=== PATIENT | female | born 1950 | race Caucasian/White ===

== ENCOUNTER 2019-06-19 07:00 | Outpatient (RCR) | payer MEDICARE, OTHER ==
[~2019-06-19 07:00] MED LIST: AMIT50TA PO; ATOR1TAB21 PO; CIPR500S PO; CIPRODEX OTIC; DIAZ2TAB PO; IBUP80TA PO; LIDO2SO SS; LISI10TA4 PO; LYRI75CA PO; MECL12.575 PO; PRED20TA PO; PREG100CA PO; SYNT100T PO
== END 2019-06-21 ==
LOC: M PT 07:00
PROVIDERS: ATTEND Family Medicine
DX: Z51.89 Encounter for other specified aftercare (principal); B02.22 Postherpetic trigeminal neuralgia; R26.89 Other abnormalities of gait and mobility

== ENCOUNTER → 2019-07-21 | Outpatient (RCR) | payer MEDICARE, OTHER | LOC: M PT 06-25 16:32 | PROVIDERS: ATTEND Family Medicine | DX: Z51.89 Encounter for other specified aftercare (principal); B02.29 Other postherpetic nervous system involvement; R26.89 Other abnormalities of gait and mobility ==

== ENCOUNTER 2019-08-18 09:06 | Outpatient (RCR) | payer MEDICARE, OTHER | END 2019-08-21 | LOC: M PT 09:06 | PROVIDERS: ATTEND Family Medicine | DX: R26.89 Other abnormalities of gait and mobility (principal) ==

== ENCOUNTER 2020-12-02 16:39 | Emergency (ER) | payer MEDICARE, OTHER ==
[~2020-12-02] VITALS: Ht 165.1 cm; Wt 140.0 kg
[~2020-12-02 16:39] MED LIST changes: +CIPR7.5D5 OTIC; -CIPRODEX OTIC; +LISI10TA22 PO; -LISI10TA4 PO; -MECL12.575 PO; +MECL12.590 PO
--- OUTSIDE RECORDS SUMMARY | 2020-12-02 16:44 | CCD ---
Author Author [facility] Organization [facility] Address Unknown Phone Unavailable Care Team Providers Care Family Program Specialist Name Role Phone REGINO, Rojelio SANDERS MD Unavailable Unavailable EMERTON, Rojelio SANDERS MD Unavailable Unavailable EMERTON, Rojelio SANDERS MD Unavailable Unavailable EMERTON, Rojelio SANDERS MD Unavailable Unavailable EMERTON, Rojelio SANDERS MD Unavailable Unavailable EMERTON, Rojelio SANDERS MD Unavailable Unavailable EMERTON, Rojelio SANDERS MD Unavailable Unavailable EMERTON, Rojelio SANDERS MD Unavailable Unavailable EMERTON, Rojelio SANDERS MD Unavailable Unavailable EMERTON, Rojeloi SANDERS MD Unavailable Unavailable EMERTON, Rojelio SANDERS MD Unavailable Unavailable EMERTON, Rojelio SANDERS MD Unavailable Unavailable EMERTON, Rojelio SANDERS MD Unavailable Unavailable EMERTON, Rojelio SANDERS MD Unavailable Unavailable EMERTON, Rojelio SANDERS MD Unavailable Unavailable EMERTON, Rojelio SANDERS MD Unavailable Unavailable EMERTON, Rojelio SANDERS MD Unavailable Unavailable EMERTON, Rojelio SANDERS MD Unavailable Unavailable EMERTON, Rojelio SANDERS MD Unavailable Unavailable EMERTON, Rojelio SANDERS MD Unavailable Unavailable EMERTON, Rojelio SANDERS MD Unavailable Unavailable EMERTON, Rojelio SANDERS MD Unavailable Unavailable EMERTON, Rojelio SANDERS MD Unavailable Unavailable EMERTON, Rojelio SANDERS MD Unavailable Unavailable EMERTON, Rojelio SANDERS MD Unavailable Unavailable EMERTON, Rojelio SANDERS MD Unavailable Unavailable EMERTON, Rojelio SANDERS MD Unavailable Unavailable EMERTON, Rojelio SANDERS MD Unavailable Unavailable EMERTON, Rojelio SANDERS MD Unavailable Unavailable EMERTON, A TOMMY MD Unavailable Unavailable EMERTON, A TOMMY MD Unavailable Unavailable EMERTON, A TOMMY MD Unavailable Unavailable EMERTON, A TOMMY MD Unavailable Unavailable EMERTON, A TOMMY MD Unavailable Unavailable EMERTON, A TOMMY MD Unavailable Unavailable EMERTON, A TOMMY MD Unavailable Unavailable EMERTON, A TOMMY MD Unavailable Unavailable EMERTON, A TOMMY MD Unavailable Unavailable EMERTON, A TOMMY MD Unavailable Unavailable EMERTON, A TOMMY MD Unavailable Unavailable EMERTON, A TOMMY MD Unavailable Unavailable EMERTON, A TOMMY MD Unavailable Unavailable EMERTON, A TOMMY MD Unavailable Unavailable EMERTON, A TOMMY MD Unavailable Unavailable EMERTON, A TOMMY MD Unavailable Unavailable EMERTON, A TOMMY MD Unavailable Unavailable EMERTON, A TOMMY MD Unavailable Unavailable EMERTON, A TOMMY MD Unavailable Unavailable EMERTON, A TOMMY MD Unavailable Unavailable EMERTON, A TOMMY MD Unavailable Unavailable EMERTON, A TOMMY MD Unavailable Unavailable EMERTON, A TOMMY MD Unavailable Unavailable EMERTON, A TOMMY MD Unavailable Unavailable EMERTON, A TOMMY MD Unavailable Unavailable EMERTON, A TOMMY MD Unavailable Unavailable EMERTON, A TOMMY MD Unavailable Unavailable EMERTON, A TOMMY MD Unavailable Unavailable EMERTON, A TOMMY MD Unavailable Unavailable EMERTON, A TOMMY MD Unavailable Unavailable EMERTON, A TOMMY MD Unavailable Unavailable EMERTON, A TOMMY MD Unavailable Unavailable EMERTON, A TOMMY MD Unavailable Unavailable EMERTON, A TOMMY MD Unavailable Unavailable EMERTON, A TOMMY MD Unavailable Unavailable EMERTON, A TOMMY MD Unavailable Unavailable EMERTON, A TOMMY MD Unavailable Unavailable EMERTON, A TOMMY MD Unavailable Unavailable EMERTON, A TOMMY MD Unavailable Unavailable EMERTON, A TOMMY MD Unavailable Unavailable EMERTON, A TOMMY MD Unavailable Unavailable EMERTON, A TOMMY MD Unavailable Unavailable EMERTON, A TOMMY MD Unavailable Unavailable EMERTON, A TOMMY MD Unavailable Unavailable EMERTON, A TOMMY MD Unavailable Unavailable Abriss, Guido Mcrae MD Unavailable Unavailable Abriss, Guido Mcrae MD Unavailable Unavailable Abriss, Guido Mcrae MD Unavailable Unavailable Abriss, Guido Mcrae MD Unavailable Unavailable Abriss, Guido Mcrae MD Unavailable Unavailable Abriss, Guido Mcrae MD Unavailable Unavailable Abriss, Guido Mcrae MD Unavailable Unavailable Abriss, Guido Mcrae MD Unavailable Unavailable Abrrosetta, Guido Mcrae MD Unavailable Unavailable Abriss, Guido Mcrae MD Unavailable Unavailable Abriss, Guido Mcrae MD Unavailable Unavailable Abriss, Guido Mcrae MD Unavailable Unavailable Abriss, Guido Mcrae MD Unavailable Unavailable Abriss, B Thor GÓMEZ Unavailable Unavailable Abriss, B Thor GÓMEZ Unavailable Unavailable Abriss, B Thor GÓMEZ Unavailable Unavailable Abriss, B Thor GÓMEZ Unavailable Unavailable Abriss, B Thor GÓMEZ Unavailable Unavailable Ali, William MD Unavailable Unavailable Ali, William MD Unavailable Unavailable Ali, William MD Unavailable Unavailable Ali, William MD Unavailable Unavailable Ali, William MD Unavailable Unavailable Ali, William MD Unavailable Unavailable Ali, William MD Unavailable Unavailable Ali, William MD Unavailable Unavailable Ali, William MD Unavailable Unavailable Ali, William MD Unavailable Unavailable Ali, William MD Unavailable Unavailable Ali, William MD Unavailable Unavailable Ali, William MD Unavailable Unavailable Ali, William MD Unavailable Unavailable Ali, William MD Unavailable Unavailable Ali, William MD Unavailable Unavailable Ali, William MD Unavailable Unavailable Ali, William MD Unavailable Unavailable Ali, William MD Unavailable Unavailable Ali, William MD Unavailable Unavailable Ali, William MD Unavailable Unavailable Ali, William MD Unavailable Unavailable Ali, William MD Unavailable Unavailable Ali, William MD Unavailable Unavailable Ali, William MD Unavailable Unavailable Ali, William MD Unavailable Unavailable Ali, William MD Unavailable Unavailable Ali, William MD Unavailable Unavailable Ali, William MD Unavailable Unavailable Ali, William MD Unavailable Unavailable Ali, William MD Unavailable Unavailable Ali, William MD Unavailable Unavailable Ali, William MD Unavailable Unavailable Ali, William MD Unavailable Unavailable Ali, William MD Unavailable Unavailable Ali, William MD Unavailable Unavailable Ali, William MD Unavailable Unavailable Ali, William MD Unavailable Unavailable Ali, William MD Unavailable Unavailable Ali, William MD Unavailable Unavailable Ali, William MD Unavailable Unavailable Ali, William MD Unavailable Unavailable Ali, William MD Unavailable Unavailable Ali, William MD Unavailable Unavailable Ali, William MD Unavailable Unavailable Ali, William MD Unavailable Unavailable Ali, William MD Unavailable Unavailable Ali, William MD Unavailable Unavailable Ali, William MD Unavailable Unavailable Re-disclosure Warning The records that you are about to access may contain information from federally-assisted alcohol or drug abuse programs. If such information is present, then the following federally mandated warning applies: This information has been disclosed to you from records protected by federal confidentiality rules (42 CFR part 2). The federal rules prohibit you from making any further disclosure of this information unless further disclosure is expressly permitted by the written consent of the person to whom it pertains or as otherwise permitted by 42 CFR part 2. A general authorization for the release of medical or other information is NOT sufficient for this purpose. The Federal rules restrict any use of the information to criminally investigate or prosecute any alcohol or drug abuse patient.The records that you are about to access may contain highly sensitive health information, the redisclosure of which is protected by Article 27-F of the [facility] Public Health law. If you continue you may have access to information: Regarding HIV / AIDS; Provided by facilities licensed or operated by the [facility] Office of Mental Health; or Provided by the [facility] Office for People With Developmental Disabilities. If such information is present, then the following [facility] mandated warning applies: This information has been disclosed to you from confidential records which are protected by state law. State law prohibits you from making any further disclosure of this information without the specific written consent of the person to whom it pertains, or as otherwise permitted by law. Any unauthorized further disclosure in violation of state law may result in a fine or senior living sentence or both. A general authorization for the release of medical or other information is NOT sufficient authorization for further disc losure. Family History Family Member Name Family Member Gender Family Member Status Date o f Status Description Data Source(s) Unknown Unknown Problem [facility] ([facility], ) Encounters Encounter Providers Location Date Indications Data Source(s ) Outpatient Attender: William Kessler MD Main office - [place] 07/08/2020 11:15:00 AM EDT [facility] ([facility], ) Outpatient Referrer: TOMMY LACY MD 02/03/2020 09:56:00 AM EDT [facility] Outpatient Attender: William Kessler MD Main office - [place] 01/06/2020 11:15:00 AM EDT [facility] ([facility], ) Outpatient Attender: Thor Yap/Michelle/Bry/Renae indl 10/08/2019 08:00:00 AM EST [facility] ([facility], ) Immunizations Vaccine Date Status Description Data Source(s) COVID-19 VACCINE, MRNA-1273, LNP-S (MODERNA)/PF 12/01/2020 1 2:00:00 AM EST completed [facility] VARICELLA-ZOSTER VIRUS GLYCOPROTEIN E,REC/AS01B ADJUVA NT/PF 05/22/2020 12:00:00 AM EDT completed [facility] Medications Medication Brand Name Start Date Product Form Dose Route Admi nistrative Instructions Pharmacy Instructions Status Indications Reaction Description Data Source(s) 100 mcg/0.5 mL 11/04/2020 12:00:00 AM EST suspension 0 INJECT BY [facility] (FIRST DOSE) INJECT BY [facility] (FIRST DOSE) SOLD: 11/05/2020 [facility] 50 mg 07/14/2020 12:00:00 AM EDT capsule 60 TAKE ONE CAPSULE BY MOUTH TWICE A DAY MAXIMUM DAILY DOSE = 2 CAPSULE TAKE ONE CAPSULE BY MOUTH TWICE A DAY MAXIMUM DAILY DOSE = 2 CAPSULE SOLD: 08/20/2020 [facility] 50 mg 07/14/2020 12:00:00 AM EDT capsule 60 TAKE ONE CAPSULE BY MOUTH TWICE A DAY MAXIMUM DAILY DOSE = 2 CAPSULE TAKE ONE CAPSULE BY MOUTH TWICE A DAY MAXIMUM DAILY DOSE = 2 CAPSULE SOLD: 09/23/2020 [facility] 50 mg 07/14/2020 12:00:00 AM EDT capsule 60 TAKE ONE CAPSULE BY MOUTH TWICE A DAY MAXIMUM DAILY DOSE = 2 CAPSULE TAKE ONE CAPSULE BY MOUTH TWICE A DAY MAXIMUM DAILY DOSE = 2 CAPSULE SOLD: 07/18/2020 [facility] 50 mg 07/14/2020 12:00:00 AM EDT capsule 60 TAKE ONE CAPSULE BY MOUTH TWICE A DAY MAXIMUM DAILY DOSE = 2 CAPSULE TAKE ONE CAPSULE BY MOUTH TWICE A DAY MAXIMUM DAILY DOSE = 2 CAPSULE SOLD: 11/29/2020 [facility] 50 mg 07/14/2020 12:00:00 AM EDT capsule 60 TAKE ONE CAPSULE BY MOUTH TWICE A DAY MAXIMUM DAILY DOSE = 2 CAPSULE TAKE ONE CAPSULE BY MOUTH TWICE A DAY MAXIMUM DAILY DOSE = 2 CAPSULE SOLD: 10/25/2020 [facility] 10 mg 06/14/2020 12:00:00 AM EDT tablet 90 TAKE 1 TABLET BY MOUTH ONCE A DAY TAKE 1 TABLET BY MOUTH ONCE A DAY SOLD: 09/23/2020 [facility] 10 mg 06/14/2020 12:00:00 AM EDT tablet 90 TAKE 1 TABLET BY MOUTH ONCE A DAY TAKE 1 TABLET BY MOUTH ONCE A DAY SOLD: 06/15/2020 [facility] 20 mg 05/17/2020 12:00:00 AM EDT tablet 90 TAKE 1 TABLET BY MOUTH ONCE A DAY TAKE 1 TABLET BY MOUTH ONCE A DAY SOLD: 05/22/2020 [facility] 100 mcg 05/17/2020 12:00:00 AM EDT tablet 90 TAKE 1 TABLET BY MOUTH ONCE A DAY IN THE MORNING ON AN EMPTY STOMACH TAKE 1 TABLET BY MOUTH ONCE A DAY IN THE MORNING ON AN EMPTY STOMACH SOLD: 08/20/2020 [facility] 100 mcg 05/17/2020 12:00:00 AM EDT tablet 90 TAKE 1 TABLET BY MOUTH ONCE A DAY IN THE MORNING ON AN EMPTY STOMACH TAKE 1 TABLET BY MOUTH ONCE A DAY IN THE MORNING ON AN EMPTY STOMACH SOLD: 05/22/2020 [facility] 50 mg 01/06/2020 12:00:00 AM EDT capsule 60 TAKE 1 CAPSULE BY MOUTH TWO TIMES A DAY MAXIMUM DAILY DOSE = 2 CAPSULES TAKE 1 CAPSULE BY MOUTH TWO TIMES A DAY MAXIMUM DAILY DOSE = 2 CAPSULES SOLD: 05/14/2020 [facility] pregabalin 50 MG Oral Capsule Pregabalin 01/06/2020 12:00:00 AM EDT ORAL active [facility] ([facility] ) 50 mg 01/06/2020 12:00:00 AM EDT capsule 60 TAKE 1 CAPSULE BY MOUTH TWO TIMES A DAY MAXIMUM DAILY DOSE = 2 CAPSULES TAKE 1 CAPSULE BY MOUTH TWO TIMES A DAY MAXIMUM DAILY DOSE = 2 CAPSULES SOLD: 06/15/2020 [facility] 50 mg 01/06/2020 12:00:00 AM EDT capsule 60 TAKE 1 CAPSULE BY MOUTH TWO TIMES A DAY MAXIMUM DAILY DOSE = 2 CAPSULES TAKE 1 CAPSULE BY MOUTH TWO TIMES A DAY MAXIMUM DAILY DOSE = 2 CAPSULES SOLD: 04/10/2020 [facility] 50 mg 01/06/2020 12:00:00 AM EDT capsule 60 TAKE 1 CAPSULE BY MOUTH TWO TIMES A DAY MAXIMUM DAILY DOSE = 2 CAPSULES TAKE 1 CAPSULE BY MOUTH TWO TIMES A DAY MAXIMUM DAILY DOSE = 2 CAPSULES SOLD: 02/04/2020 [facility] 50 mg 01/06/2020 12:00:00 AM EDT capsule 60 TAKE 1 CAPSULE BY MOUTH TWO TIMES A DAY MAXIMUM DAILY DOSE = 2 CAPSULES TAKE 1 CAPSULE BY MOUTH TWO TIMES A DAY MAXIMUM DAILY DOSE = 2 CAPSULES SOLD: 03/08/2020 [facility] 50 mg 01/06/2020 12:00:00 AM EDT capsule 60 TAKE 1 CAPSULE BY MOUTH TWO TIMES A DAY MAXIMUM DAILY DOSE = 2 CAPSULES TAKE 1 CAPSULE BY MOUTH TWO TIMES A DAY MAXIMUM DAILY DOSE = 2 CAPSULES SOLD: 01/06/2020 [facility] 10 mg 12/23/2019 12:00:00 AM EST tablet 90 TAKE ONE TABLET BY MOUTH EVERY DAY TAKE ONE TABLET BY MOUTH EVERY DAY SOLD: 03/21/2020 [facility] 10 mg 12/23/2019 12:00:00 AM EST tablet 90 TAKE ONE TABLET BY MOUTH EVERY DAY TAKE ONE TABLET BY MOUTH EVERY DAY SOLD: 12/23/2019 [facility] 100 mcg 11/21/2019 12:00:00 AM EST tablet 90 TAKE 1 TABLET BY MOUTH ONCE A DAY IN THE MORNING ON AN EMPTY STOMACH TAKE 1 TABLET BY MOUTH ONCE A DAY IN THE MORNING ON AN EMPTY STOMACH SOLD: 02/24/2020 [facility] 100 mcg 11/21/2019 12:00:00 AM EST tablet 90 TAKE 1 TABLET BY MOUTH ONCE A DAY IN THE MORNING ON AN EMPTY STOMACH TAKE 1 TABLET BY MOUTH ONCE A DAY IN THE MORNING ON AN EMPTY STOMACH SOLD: 11/22/2019 [facility] 10 mg 11/20/2019 12:00:00 AM EST tablet 30 TAKE ONE TABLET BY MOUTH EVERY DAY TAKE ONE TABLET BY MOUTH EVERY DAY SOLD: 11/22/2019 [facility] 100 mg 09/04/2019 12:00:00 AM EST capsule 60 TAKE ONE CAPSULE BY MOUTH TWICE A DAY MAXIMUM DAILY DOSE = 2 CAPSULES TAKE ONE CAPSULE BY MOUTH TWICE A DAY MAXIMUM DAILY DOSE = 2 CAPSULES SOLD: 12/01/2019 [facility] 100 mg 09/04/2019 12:00:00 AM EST capsule 60 TAKE ONE CAPSULE BY MOUTH TWICE A DAY MAXIMUM DAILY DOSE = 2 CAPSULES TAKE ONE CAPSULE BY MOUTH TWICE A DAY MAXIMUM DAILY DOSE = 2 CAPSULES SOLD: 11/02/2019 [facility] pregabalin 100 MG Oral Capsule Pregabalin 09/04/2019 12:00:00 AM EST ORAL completed [facility] ([facility]) Diazepam 2 MG Oral Tablet Diazepam 05/16/2019 12:00:00 AM EDT ORAL completed [facility] Insurance Providers Payer name Policy type / Coverage type Policy ID Covered constitution party ID Covered constitution party's relationship to romo Policy Romo Plan Information [facility] [id number] MEDICARE [id number] SP [id number] N01 [facility] O [id number] S [id number] MEDICARE C [id number] S [id number] MEDICARE [id number] SP [id number] N01 [facility] [id number] [id number] MEDICARE [id number] SP [id number] A MEDICARE [id number] SP [id number] A [place] [id number] 2 [id number] [place] [id number] Self [id number] Umr Commercial [id number] Self [id number] [place] [id number] Self [id number] [place] [id number] Self [id number] UMR U [id number] Spouse [id number] MEDICARE A [id number] Self [id number] N01 UMR [facility] [id number] SP [id number] MEDICARE A [id number] Self [id number] T [place] [id number] Spo [id number] MEDICARE [id number] Vanessa [id number] A MEDICARE C [id number] S [id number] A [place] PPO O [id number] S [id number] MEDICARE C [id number] S [id number] T [place] Medigap Part B Family Dependent Medicare [place] Primary Self MEDICARE [id number] Vanessa [id number] T [id number] Results ID Date Data Source [id number] 10/18/2020 12:00:00 AM EST [facility] Tommy Lacy MD Patient Name: SHAHZAD BATES [facility] Date of : 1950[address] Date of Exam:10/18/2020JOSE Luna [id number]#: Fax: [id number] EXAM: MAMMO SCREENING WITH CADCLINICAL INFORMATION: Screening.Based on the personal and family history information your patient suppliedat the time of imaging, her lifetime risk of breast cancer estimated by theTyrer-Cuzick model is 10.6%. Given that this patient has less than 20% TCrisk score, no further medical management is currently recommended at thistime.Digital screening (2D) mammography was performed bilaterally in the CC andMLO projections. Additionally, breast tomosynthesis (3D mammography) wasperformed bilaterally in the CC and MLO projections. Today's exam wascompared to the prior exam(s).By history, the patient has no complaints of a palpable breast abnormalityor other significant breast complaints.The patient states last clinical breast exam was over a year ago.The breasts are unchanged in size and shape. There are no tiffanie- soft tissuedensities or spiculated masses. There is no internal architecturaldistortion. There are no suspicious tiffanie-calcific clusters. Skinthickening or nipple retraction is not present.The Volpara volumetric breast density category is B, there are scatteredareas of fibroglandular density.IMPRESSION:BI-RADS Category 1 - Negative Mammogram. Stable mammogram. There is noevidence of malignant alteration of the breasts. Followup examinationrecommended in one year.This mammogram was read with the assistance of [employer], an FDAapproved computer aided detection system for mammography.Negative x-ray reports should not delay surgical consultation if a dominantor clinically suspicious mass is present.Not all breast cancers can be identified by mammography. Therefore, werecommend that you continue to perform regular breast self-examination andphysical examination and then promptly contact your physician of anyconcerns or changes.Adenosis and dense breasts may obscure an underlying neoplasm.MARTELL Mancera/Jake you for referring MARIBELL BATES to our office.Electronically Signed - ROSIBEL BROWN DO 10/19/20 10:40 Name Value Range Interpretation Code Description Data Rina rce(s) Supporting Document(s) ID Date Data Source [id number] 03/04/2020 08:32:00 AM EDT [facility]) Name Value Range Interpretation Code Description Data Rina rce(s) Supporting Document(s) Calcidiol [Mass/volume] in Serum or Plasma 43.8 ng/mL 30.0-100.0 [facility] ([facility]) A courtesy copy of this report has been sent to the patient, Test(s) 921636-Ofarlqd E(Alpha Tocopherol); 482954- Vitamin E(Gamma Tocopherol) was developed and its performance characteristics determined by [facility]. It has not been cleared or approved by the Food and Drug Administration. Laboratory test finding (navigational concept) Laboratory test result [facility] ([facility]) A courtesy copy of this report has been sent to the patient, Test(s) 690529-Duvzynl E(Alpha Tocopherol); 961201- Vitamin E(Gamma Tocopherol) was developed and its performance characteristics determined by [facility]. It has not been cleared or approved by the Food and Drug Administration. ID Date Data Source [id number] 03/04/2020 08:32:00 AM EDT [facility] ([facility]) Name Value Range Interpretation Code Description Data Rina rce(s) Supporting Document(s) Alpha tocopherol [Mass/volume] in Serum or Plasma 23.2 mg/L 9.0-29.0 [facility] ([facility]) A courtesy copy of this report has been sent to the patient, Test(s) 571442-Cediuic E(Alpha Tocopherol); 359044- Vitamin E(Gamma Tocopherol) was developed and its performance characteristics determined by [facility]. It has not been cleared or approved by the Food and Drug Administration. Vitamin E(Gamma Tocopherol) 0.2 mg/L 0.5-4.9 [facility] ([facility]) A courtesy copy of this report has been sent to the patient, Test(s) 384404-Gqcckat E(Alpha Tocopherol); 257687- Vitamin E(Gamma Tocopherol) was developed and its performance characteristics determined by [facility]. It has not been cleared or approved by the Food and Drug Administration. ID Date Data Source [id number] 03/04/2020 08:32:00 AM EDT [facility] ([facility]) Name Value Range Interpretation Code Description Data Rina rce(s) Supporting Document(s) Cobalamin (Vitamin B12) [Mass/volume] in Serum or Plasma 691 pg/mL 2 15-4768 [facility] ([facility]) A courtesy copy of this report has been sent to the patient, Test(s) 894322-Czogmgv E(Alpha Tocopherol); 765149- Vitamin E(Gamma Tocopherol) was developed and its performance characteristics determined by [facility]. It has not been cleared or approved by the Food and Drug Administration. Folate (Folic Acid), Serum Laboratory test result [facility] ([facility]) A courtesy copy of this report has been sent to the patient, Test(s) 923540-Qcsvaeu E(Alpha Tocopherol); 933414- Vitamin E(Gamma Tocopherol) was developed and its performance characteristics determined by [facility]. It has not been cleared or approved by the Food and Drug Administration. Procedure Vital Signs ID Date Data Source UNK Name Value Range Interpretation Code Description Data Source(s) Body weight 61.236 kg 61.236 kg [facility] ([facility]) Body mass index (BMI) [Ratio] 22.5 kg/m2 22.5 k g/m2 [facility] ([facility]) Body weight 135.00 [lb_av] 135.00 [lb_av] [facility] ([facility]) Body height 65 [in_i] 65 [in_i] [facility] ([facility]) 5'5" Body weight 61.236 kg 61.236 kg [facility] ([facility]) Body mass index (BMI) [Ratio] 22.5 kg/m2 22.5 k g/m2 [facility] ([facility]) Body weight 135.00 [lb_av] 135.00 [lb_av] [facility] ([facility]) Body height 65 [in_i] 65 [in_i] [facility] ([facility]) 5'5"
--- OUTSIDE RECORDS SUMMARY | 2020-12-02 17:35 | CCD ---
Author Author [facility] Organization [facility] Address Unknown Phone Unavailable Care Team Providers Care Maternity Nurse Name Role Phone REGINO, Rojelio SANDERS MD [...] Unavailable Abrrosetta, Guido Mcrae MD Unavailable Unavailable Abrrosetta, Guido Mcrae MD Unavailable Unavailable Abrrosetta, Guido Mcrae MD Unavailable Unavailable Abrrosetta, Guido [...] is protected by Article 27-F of the [facility] Public Health law. If you continue you may have access to information: Regarding HIV / AIDS; Provided by facilities licensed or operated by the [facility] Office of Mental Health; or Provided by the [facility] Office for People With Developmental Disabilities. If such information is present, then the following [facility] mandated warning applies: This information has been [...] law may result in a fine or half-way sentence or both. A general authorization for the release of medical or other information is NOT sufficient authorization for further disc losure. Family History Family Member Name Family Member Gender Family Member Status Date o f Status Description Data Source(s) Unknown Unknown Problem [facility] ([facility], ) Encounters Encounter Providers Location Date Indications Data Source(s ) Outpatient Attender: William Kessler MD Main office [facility] 07/08/2020 11:15:00 AM EDT [facility] ([facility], ) Outpatient Referrer: TOMMY LACY MD 02/03/2020 09:56:00 AM EDT [facility] Outpatient Attender: William Kessler MD Main office [place] 01/06/2020 11:15:00 AM EDT [facility] ([facility], ) Outpatient Attender: Thor Yap/Michelle/Bry/Renae indl 10/08/2019 08:00:00 AM EST [facility] ([facility], ) Immunizations Vaccine Date Status Description Data [...] EST suspension 0 INJECT BY [facility] (FIRST DOSE) INJECT BY [facility] (FIRST DOSE) SOLD: 11/05/2020 [facility] 50 [...] 12:00:00 AM EDT ORAL active [facility] 50 mg 01/06/2020 12:00:00 AM EDT [...] DAILY DOSE = 2 CAPSULES SOLD: 12/01/2019 [facility] 100 mg 09/04/2019 12:00:00 AM [...] 05/16/2019 12:00:00 AM EDT ORAL completed [facility] ([facility]) Insurance Providers Payer name Policy type / Coverage type Policy ID Covered constitution party ID Covered constitution party's relationship to fitch Policy Fitch Plan Information R [facility] [id number] [facility] [id number] MEDICARE [id number] SP [id number] N01 R [id number] S [id number] MEDICARE C [id number] S [id number] [id number] MEDICARE [id number] SP [id number] N[address] U[address] [facility] [id number] MEDICARE [id number] SP [id number] A MEDICARE [id number] SP [id number] A [place] [id number] [id number] [place] [id number] Self [id number] Umr Commercial [id number] Self [id number] [place] Primary [id number] Self [id number] [place] Primary [id number] Self [id number] UMR U [id number] Spouse [id number] MEDICARE A [id number] Self [id number] N[address] [facility] [id number] SP [id number] MEDICARE A [id number] Self [id number] T [employer] [id number] Spo [id number] MEDICARE [id number] Vanessa [id number] A MEDICARE C [id number] S [id number] A [employer] PPO O [id number] S [id number] MEDICARE C [id number] S [id number] T [place] Medigap Part B Family Dependent Medicare [place] Primary Self MEDICARE [id number] Vanessa [id number] T [id number] Results ID Date Data Source [id number] 10/18/2020 12:00:00 AM EST [facility] Tommy Lacy MD Patient Name: SHAHZAD BATES [facility] Date of : 1950[address] [facility] [id number] Fax: [phone] EXAM: MAMMO SCREENING WITH CADCLINICAL [...] mammogram was read with the assistance of [employer], an FDAapproved computer aided detection system for [...] rce(s) Supporting Document(s) ID Date Data Source [id number] 03/04/2020 08:32:00 AM EDT [facility] ([facility]) Name Value Range Interpretation Code Description Data Rina rce(s) Supporting Document(s) Calcidiol [Mass/volume] in Serum or Plasma 43.8 ng/mL 30.0-100.0 [facility] ([facility]) A courtesy copy of this report has been sent to the patient, Test(s) 752191-Vghexve E(Alpha Tocopherol); 099190- Vitamin E(Gamma Tocopherol) was developed and its performance characteristics determined by [facility]. It has not been cleared or approved by the Food and Drug Administration. Laboratory test finding (navigational concept) Laboratory test result [facility] ([facility]) A courtesy copy of this report has been sent to the patient, Test(s) 788599-Yfabrzc E(Alpha Tocopherol); 379796- Vitamin E(Gamma Tocopherol) was developed and its performance characteristics determined by [facility]. It has not been cleared or approved by the Food and Drug Administration. ID Date Data Source [id number] 03/04/2020 08:32:00 AM EDT [facility] ([facility]) Name Value Range Interpretation Code Description Data Rina rce(s) Supporting Document(s) Alpha tocopherol [Mass/volume] in Serum or Plasma 23.2 mg/L 9.0-29.0 [facility] ([facility]) A courtesy copy of this report has been sent to the patient, Test(s) 824762-Wmioekb E(Alpha Tocopherol); 838868- Vitamin E(Gamma Tocopherol) was developed and its performance characteristics determined by [facility]. It has not been cleared or approved by the Food and Drug Administration. Vitamin E(Gamma Tocopherol) 0.2 mg/L 0.5-4.9 [facility] A courtesy copy of this report has been sent to the patient, Test(s) 283397-Wdmghcm E(Alpha Tocopherol); 876893- Vitamin E(Gamma Tocopherol) was developed and its performance characteristics determined by [facility]. It has not been cleared or approved by the Food and Drug Administration. ID Date Data Source [id number] 03/04/2020 08:32:00 AM EDT [facility] ([facility]) Name Value Range Interpretation Code Description Data Rina rce(s) Supporting Document(s) Cobalamin (Vitamin B12) [Mass/volume] in Serum or Plasma 691 pg/mL 2 00-7042 [facility] ([facility]) A courtesy copy of this report has been sent to the patient, Test(s) 833428-Tzwyfhh E(Alpha Tocopherol); 114929- Vitamin E(Gamma Tocopherol) was developed and its performance characteristics determined by [facility]. It has not been cleared or approved by the Food and Drug Administration. Folate (Folic Acid), Serum Laboratory test result [facility] ([facility]) A courtesy copy of this report has been sent to the patient, Test(s) 182573-Ydnhtew E(Alpha Tocopherol); 866484- Vitamin E(Gamma Tocopherol) was developed and its performance characteristics determined by [facility]. It has not been cleared or approved by the Food and Drug Administration. Procedure Vital Signs ID Date Data Source UNK Name Value Range Interpretation Code Description Data Source(s) Body weight 61.236 kg 61.236 kg [facility] ([facility]) Body mass index (BMI) [Ratio] 22.5 kg/m2 22.5 k g/m2 [facility]) Body weight 135.00 [lb_av] 135.00 [lb_av] [facility] Body height 65 [in_i] 65 [in_i] [facility] ([facility]) 5'5" Body weight 61.236 kg 61.236 kg [facility] ([facility]) Body mass index (BMI) [Ratio] 22.5 kg/m2 22.5 k g/m2 [facility] ([facility]) Body weight 135.00 [lb_av] 135.00 [lb_av] [facility] T ([facility]) Body height 65 [in_i] 65 [in_i] [facility] ([facility]) 5'5"
[2020-12-02] MEDS ORDERED: ONDANSETRON 4MG/2ML VIAL IV ONE (18:15)
[2020-12-02] MEDS ORDERED: NS 500 ML IV ONE (18:15)
--- NOTE | 2020-12-02 18:31 | REPVR ---
PROCEDURE INFORMATION: Exam: CT Head Without Contrast Exam date and time: 12/02/2020 6:04 PM Age: 70 years old Clinical indication: Pain; Other: Vomiting; Headache; Additional info: Headache, vomiting TECHNIQUE: Imaging protocol: Computed tomography of the head without contrast. Radiation optimization: All CT scans at this facility use at least one of these dose optimization techniques: automated exposure control; mA and/or kV adjustment per patient size (includes targeted exams where dose is matched to clinical indication); or iterative reconstruction. COMPARISON: MRI-Brain without Contrast 05/19/2019 5:00 PM FINDINGS: Brain: Normal. No hemorrhage. Unremarkable white matter. No mass effect. Cerebral ventricles: No ventriculomegaly. Bones/joints: Unremarkable. No acute fracture. Paranasal sinuses: Visualized sinuses are unremarkable. No fluid levels. Mastoid air cells: Visualized mastoid air cells are well aerated. Soft tissues: Unremarkable. IMPRESSION: No acute intracranial abnormality. Electronically signed by: Iain Montes De Oca On 12/02/2020 18:31:21 PM
[2020-12-02 19:00] LABS: BASO % 0.2 % (0.0-1.0); HEMATOCRIT 45.3 % (36.0-47.0); HEMOGLOBIN 15.5 g/dl (12.0-15.5); LYMPH % 8.7 % (24.0-44.0); MEAN CORPUSCULAR HEMOGLOBIN 31.6 pg (27.0-33.0); MEAN CORPUSCULAR HGB CONC 34.2 g/dl (32.0-36.5); MEAN CORPUSCULAR VOLUME 92.3 fl (80.0-96.0); MONO # 0.6 10^3/uL (0.0-0.8); MONO % 5.1 % (0.0-5.0); NEUTROPHILS # 9.5 10^3/uL (1.5-8.5); NEUTROPHILS % 85.6 % (36.0-66.0); PLATELET COUNT, AUTOMATED 208 10^3/uL (150-450); RED BLOOD COUNT 4.91 10^6/uL (4.00-5.40); WHITE BLOOD COUNT 11.1 10^3/uL (4.0-10.0)
[2020-12-02 19:20] LABS: ALBUMIN 4.1 GM/DL (3.2-5.2); ALT/SGPT 34 U/L (12-78); BILIRUBIN,DIRECT 0.2 MG/DL (0.0-0.2); BILIRUBIN,TOTAL 0.8 MG/DL (0.2-1.0); BLOOD UREA NITROGEN 20 MG/DL (7-18); CALCIUM LEVEL 9.3 MG/DL (8.8-10.2); CARBON DIOXIDE LEVEL 25 MEQ/L (21-32); CHLORIDE LEVEL 100 MEQ/L (98-107); CREATININE FOR GFR 0.62 MG/DL (0.55-1.30); GLOMERULAR FILTRATION RATE > 60.0 (>39); GLUCOSE, FASTING 132 MG/DL (70-100); LIPASE 125 U/L (73-393); POTASSIUM SERUM 3.6 MEQ/L (3.5-5.1); SODIUM LEVEL 135 MEQ/L (136-145); TOTAL PROTEIN 7.7 GM/DL (6.4-8.2)
[2020-12-02] MEDS ORDERED: ZOFR4TAB16 PO (20:14)
[2020-12-02 20:31] VITALS: BP 163/83
== END 2020-12-02 20:33 | disposition home or self-care (01) ==
LOC: M ED 16:39
DX: R11.10 Vomiting, unspecified (principal); T50.Z95A Adverse effect of other vaccines and biological substances, initial encounter; I10 Essential (primary) hypertension; E03.9 Hypothyroidism, unspecified; E78.5 Hyperlipidemia, unspecified; Z79.899 Other long term (current) drug therapy; Z79.890 Hormone replacement therapy; Z88.1 Allergy status to other antibiotic agents; Z88.2 Allergy status to sulfonamides; Z88.5 Allergy status to narcotic agent
CPT/HCPCS: 70450; 80048; 80076; 83690; 85025; 93041; 96361; 96374; 99284; J2405

== ENCOUNTER → 2021-01-03 | Outpatient (CLI) | payer MEDICARE, OTHER ==
[~2021-01-03] MED LIST changes: +ISOVUE-370 76% 100ML VIAL As Ordered ONE; +MECL-136 PO; -MECL12.590 PO; +ZOFR4TAB16 PO
--- NOTE | 2021-01-03 08:47 | REP ---
INDICATION: AORTIC ECTASIA COMPARISON: None. TECHNIQUE: Real time ornelas scale ultrasound examination using curved array transducer. FINDINGS: The abdominal aorta demonstrates mild atheromatous plaquing and without evidence for aneurysm. Proximal aorta: 2.6 x 2.5 cm Aorta at renal arteries: 2.0 x 2.3 cm Mid aorta: 1.9 x 1.9 cm Distal aorta: 1.7 x 2.0 cm Right common iliac artery: 1.1 x 1.2 cm Left common iliac artery: 1.1 x 1.2 cm IMPRESSION: Mild atheromatous changes. No evidence for abdominal aortic aneurysm. <Electronically signed by Toño Saenz > 01/03/21 [id number]
== END ==
LOC: M RAD 07:48
PROVIDERS: ATTEND Family Medicine
DX: I77.819 Aortic ectasia, unspecified site (principal)
CPT/HCPCS: 76775; Q9967

== ENCOUNTER → 2021-10-20 | Outpatient (CLI) | payer MEDICARE, OTHER ==
[~2021-10-20] MED LIST changes: -ISOVUE-370 76% 100ML VIAL As Ordered ONE
== END ==
LOC: M LABSMTC 10:19
PROVIDERS: ATTEND Orthopaedic Surgery
DX: Z20.822 Contact with and (suspected) exposure to COVID-19 (principal)

== ENCOUNTER 2022-03-14 16:44 | Emergency (ER) | payer MEDICARE, OTHER ==
[~2022-03-14] VITALS: Ht 165.1 cm; Wt 63.6 kg
[2022-03-14 16:46] VITALS: BP 184/93
[2022-03-14] MEDS ORDERED: PREG50CA2 (17:05)
== END 2022-03-14 17:41 | disposition left against medical advice (07) ==
LOC: M ED 16:44
DX: Z53.21 Procedure and treatment not carried out due to patient leaving prior to being seen by health care provider (principal)

== ENCOUNTER → 2022-06-11 | Outpatient (CLI) | payer MEDICARE, OTHER ==
[~2022-06-11] MED LIST changes: +ONDA4SOL PO; +PRAV20TA2 PO; +PREG50CA2 PO; +VITA400C81 PO
== END ==
LOC: M LABSMTC 11:21
PROVIDERS: ATTEND Anesthesiology
DX: Z01.818 Encounter for other preprocedural examination (principal); Z11.52 Encounter for screening for COVID-19

== ENCOUNTER 2022-06-14 06:40 | Day surgery (SDC) | payer MEDICARE, OTHER ==
[~2022-06-14] VITALS: Ht 165.1 cm; Wt 63.9 kg
[~2022-06-14 06:40] MED LIST changes: +NS 1,000 ML IV ONE
[2022-06-14] MEDS ORDERED: LIDOCAINE 2% 100MG/5ML SDV (FOR ANES.) As Ordered ONE (06:56)
[2022-06-14] MEDS ORDERED: propofoL 200 MG/20 ML VIAL As Ordered ONE (06:57)
[2022-06-14] MEDS ORDERED: ePHEDrine SULFATE 25 MG/5 ML(5MG/ML) SYRINGE As Ordered ONE (07:41)
[2022-06-14 08:15] VITALS: BP 140/71
== END 2022-06-14 08:30 | disposition home or self-care (01) ==
LOC: M OPP 06:40
PROVIDERS: ATTEND Internal Medicine Gastroenterology
DX: Z12.11 Encounter for screening for malignant neoplasm of colon (principal); Z80.0 Family history of malignant neoplasm of digestive organs; K57.30 Diverticulosis of large intestine without perforation or abscess without bleeding; K64.0 First degree hemorrhoids; I10 Essential (primary) hypertension; E78.5 Hyperlipidemia, unspecified; E03.9 Hypothyroidism, unspecified; Z79.02 Long term (current) use of antithrombotics/antiplatelets; Z79.899 Other long term (current) drug therapy; Z88.2 Allergy status to sulfonamides; Z88.5 Allergy status to narcotic agent

== ENCOUNTER → 2024-07-02 | Outpatient (CLI) | payer MEDICARE, OTHER ==
[~2024-07-02] MED LIST changes: +LIDO15SO9 SS; -LIDO2SO SS; -NS 1,000 ML IV ONE; -PREG50CA2 PO; +PREG50CA3 PO; +VITA180C2 PO; -VITA400C81 PO
== END ==
LOC: M PLAIMG 09:59
PROVIDERS: ATTEND Family Medicine
DX: M79.604 Pain in right leg (principal)

== ENCOUNTER → 2024-07-30 | Outpatient (CLI) | payer MEDICARE, OTHER ==
[2024-07-30 16:50] LABS: BLOOD UREA NITROGEN 10 MG/DL (9-23); CALCIUM LEVEL 9.9 MG/DL (8.3-10.6); CARBON DIOXIDE LEVEL 29 MMOL/L (20-31); CHLORIDE LEVEL 99 MMOL/L (98-107); CREATININE FOR GFR 0.63 MG/DL (0.55-1.30); GLOMERULAR FILTRATION RATE > 60.0 (>39); GLUCOSE, FASTING 92 MG/DL (74-106); POTASSIUM SERUM 4.2 MMOL/L (3.5-5.1); SODIUM LEVEL 134 MMOL/L (136-145)
== END ==
LOC: M WUC 13:45
PROVIDERS: ATTEND Student in an Organized Health Care Education/Training Program
DX: J06.9 Acute upper respiratory infection, unspecified (principal)

== ENCOUNTER → 2024-11-18 | Outpatient (REF) | payer MEDICARE, OTHER | LOC: M LAB REF 11:52 → EEVIPCON 11:52 | PROVIDERS: ATTEND Physician Assistant | DX: N39.0 Urinary tract infection, site not specified (principal) ==